=== PATIENT | female | born 1980 | race African-American/Black ===

== ENCOUNTER 2024-05-20 12:26 | Emergency (ER) | payer BC, MEDICAID ==
[2024-05-20] MEDS ORDERED: Ketorolac Tromethamine 30 MG (1 mL) VIAL ONE (14:16)
== END 2024-05-20 15:15 | disposition home or self-care (01) ==
LOC: CSHERS 12:26
DX: M79.671 Pain in right foot (principal); M79.672 Pain in left foot; I10 Essential (primary) hypertension
CPT/HCPCS: 96372; 99283; J1885

== ENCOUNTER 2024-07-01 09:38 | Emergency (ER) | payer BC | END 2024-07-01 10:22 | disposition home or self-care (01) | LOC: CSHERS 09:38 | DX: J18.9 Pneumonia, unspecified organism (principal); I10 Essential (primary) hypertension; Z79.899 Other long term (current) drug therapy | CPT/HCPCS: 99283 ==

== ENCOUNTER 2024-07-30 19:08 | Emergency (ER) | payer BC ==
[~2024-07-30 19:08] MED LIST: Iopamidol 300 61% 100 ML VIAL FS ONE
[2024-07-30 19:39] LABS: #Basophils 0.01 10x3/uL (0.0-0.2); #Eosinophils 0.19 10x3/uL (0.0-0.5); #Monocytes 0.42 10x3/uL (0.0-1.1); #Neutrophils 3.18 10x3/uL (1.5-8.4); %Basophils 0.2 % (0.0-2.0); %Eosinophils 2.9 % (0.0-6.0); %Lymphocytes 42.2 % (18.0-47.0); %Monocytes 6.4 % (0.0-10.0); %Neutrophils 48.1 % (40.0-75.0); Hematocrit 36.2 % (34.9-44.5); Mean Corpuscular HGB CONC 33.1 g/dL (32.0-36.0); Mean Corpuscular Hemoglobin 27.1 pg (27.0-33.0); Mean Corpuscular Volume 81.7 fL (81.6-98.3); Platelet Count 328 10x3/uL (150-450); RBC Distribution Width 13.4 % (11.5-14.5); Red Blood Cell (RBC) Count 4.43 10x6/uL (3.90-5.03); White Blood Cell (WBC) Count 6.6 10x3/uL (3.5-10.5)
[2024-07-30 19:55] LABS: Anion Gap 14 mmol/L (10-20); BUN (Urea Nitrogen) 15 mg/dL (7.0-18.7); Calc. Creatinine Clearance 0 mL/min (70-130); Calcium 9.5 mg/dL (7.8-10.44); Carbon Dioxide 26 mmol/L (22-29); Chloride 104 mmol/L (98-107); Estimated GFR 101; Glucose 101 mg/dL (70-105); Potassium 3.6 mmol/L (3.5-5.1); Sodium 140 mmol/L (136-145)
[2024-07-30 20:08] LABS: Bilirubin Neg (Negative); Blood, Urine Negative (Negative); Clarity Clear (Clear); Glucose, Urine (Dipstick) Normal (Negative); Ketone, Urine Negative (Negative); Leukocyte Negative (Negative); Nitrite Negative (Negative); Protein, Urine (Dipstick) 15 mg/dl (Neg-Trace); Specific Gravity, Urine 1.015 (1.005-1.030)
[2024-07-30 20:24] LABS: Bacteria/HPF Rare-Few HPF (None Seen); CAUTI Indications for Culture Pelvic or flank pain; RBC/HPF 0-3 HPF (0-3); Squamous Epithelial 0-3 HPF (0-3); WBC/HPF 0-3 HPF (0-3)
[2024-07-30 20:25] LABS: Urine Culture Reflex No No
[2024-07-30 20:28] LABS: Pregnancy Test - Urine (BHCG) Negative (Negative); Pregu Control Background? CLEAR/WHITE (CLR/WHITE); Pregu Control Bar Appear? YES (CONTROL BAR); Specific Gravity 1.015 (1.002-1.036)
[2024-07-30] MEDS ORDERED: HYDROcodone/Acetaminophen 5/325 mg Tablet ONE (22:14)
[2024-07-30] MEDS ORDERED: Ketorolac Tromethamine 30 MG (1 mL) VIAL ONE (22:16)
== END 2024-07-30 22:28 | disposition home or self-care (01) ==
LOC: CSHERS 19:08
DX: K55.061 Focal (segmental) acute infarction of intestine, part unspecified (principal); K42.9 Umbilical hernia without obstruction or gangrene; R16.0 Hepatomegaly, not elsewhere classified; I10 Essential (primary) hypertension
CPT/HCPCS: 74177; 80048; 81001; 81025; 85025; J1885; Q9967